=== PATIENT | female | born 1985 | race Caucasian/White ===

== ENCOUNTER 2020-04-26 05:54 | Day surgery (SDC) | payer OTHER ==
[2020-04-23 10:01] LABS: HEMATOCRIT 40.6 % (36.0-47.0); MEAN CORPUSCULAR HEMOGLOBIN 29.8 pg (27.0-33.4); MEAN CORPUSCULAR HGB CONC 34.5 g/dL (32.0-36.0); MEAN CORPUSCULAR VOLUME 86 fl (80-97); PLATELET COUNT 262 10^3/uL (150-450); RED CELL DISTRIBUTION WIDTH 12.8 % (11.5-14.0); WHITE BLOOD COUNT 6.6 10^3/uL (4.0-10.5)
[2020-04-23 10:03] LABS: APPEARANCE,URINE CLEAR; BILIRUBIN,URINE NEGATIVE (NEGATIVE); COLOR,URINE YELLOW; GLUCOSE, URINE NEGATIVE (NEGATIVE); KETONES,URINE NEGATIVE (NEGATIVE); LEUKOCYTE ESTERASE,URINE NEGATIVE (NEGATIVE); NITRITE,URINE NEGATIVE (NEGATIVE); PROTEIN,URINE NEGATIVE (NEGATIVE); UROBILINOGEN,URINE NEGATIVE mg/dL (<2.0)
[2020-04-23 10:32] LABS: ANION GAP 9 (5-19); BLOOD UREA NITROGEN 18 mg/dL (7-20); CALCIUM 9.5 mg/dL (8.4-10.2); CARBON DIOXIDE 26 mmol/L (22-30); CHLORIDE 103 mmol/L (98-107); GLUCOSE 87 mg/dL (75-110); POTASSIUM 4.2 mmol/L (3.6-5.0)
[~2020-04-26 05:54] MED LIST: CEFAZOLIN 1 GM/D5W RTU 1 GM/50 ML RTUPB IV ONE; CEFAZOLIN 1 GM/D5W RTU 1 GM/50 ML RTUPB IV PRN; CEFAZOLIN 1 GM/D5W RTU 1 GM/50 ML RTUPB IV SCH; LACTATED RINGERS 1000 ML IV PRN; LIDOCAINE 0.5% INJ-PF (5 MG/ML) 50 ML SDV SUBCUT PRN
[2020-04-26] MEDS ORDERED: MIDAZOLAM 2 MG/2 ML INJ ONE (08:04)
[2020-04-26] MEDS ORDERED: PROPOFOL INJ 200 MG/20 ML VIAL IV ONE (08:04)
[2020-04-26] MEDS ORDERED: FENTANYL CITRATE INJ/PF 100 MCG/2 ML AMPUL ONE (08:04)
[2020-04-26] MEDS ORDERED: LIDOCAINE 1% INJ-PF (10 MG/ML) 30 ML SDV ONE (08:29)
[2020-04-26] MEDS ORDERED: FENTANYL CITRATE INJ/PF 100 MCG/2 ML AMPUL IV PRN ×3 (08:42)
[2020-04-26] MEDS ORDERED: MORPHINE SULFATE 10 MG/ML INJ IV PRN (08:42)
[2020-04-26] MEDS ORDERED: MEPERIDINE HCL/PF INJ 25 MG/1 ML DISP.SYRIN IV PRN (08:42)
[2020-04-26] MEDS ORDERED: PROMETHAZINE HCL INJ 25 MG/1 ML VIAL IV PRN ×2 (08:42)
[2020-04-26] MEDS ORDERED: DIPHENHYDRAMINE HCL 50 MG/ML VIAL IV PRN (08:42)
--- NOTE | 2020-04-26 09:07 | Operative Report ---
Operative Report DATE OF SURGERY: 04/26/20 PREOPERATIVE DIAGNOSIS: Desires sterilization POSTOPERATIVE DIAGNOSIS: same OPERATION: Open laparoscopy, Filshie clip sterilization SURGEON: SAVANAH ESCOBEDO ANESTHESIA: GA TISSUE REMOVED OR ALTERED: None COMPLICATIONS: None ESTIMATED BLOOD LOSS: 5 mL INTRAOPERATIVE FINDINGS: Normal upper abdomen normal tubes ovaries uterus cul-de-sac. Appendix was not visualized PROCEDURE: The usual risks, benefits, expectations and complications of bleeding, i nfection, anesthesia and damage to other organs have been explaed and understood. No guarantee of permanent sterilization have been made with a risk of of about 1/150/10 years with this procedure. After surgical time out, exam under anesthesia, hulka tenaculum placed, and bladder catheterization ensued. Normal anatomy was noted. The surgeon re-gloved and via an infraumbilical incision thru the subq fat and fascia, the peritoneum was encountered and entered uneventfully. Orgin cannula placed and inflated. The pelvis and upper abdomen was examined, a second 5 mm port placed 3 finger breadths above symphysis under direct visualization, the tubes identified in their entirety and filshie clips placed on the antimesenteric side 1 cm from the uterine fundus bilaterally. The gas and instruments were removed, Fasci closed with O vicryl, subq with 3O gut
[2020-04-26] MEDS ORDERED: KETOROLAC TROMETHAMINE INJ/PF 30 MG/1 ML SDV ONE (09:41)
[2020-04-26] MEDS ORDERED: KETOROLAC TROMETHAMINE INJ/PF 30 MG/1 ML SDV IV ONE (10:00)
[2020-04-26] MEDS ORDERED: ACETAMINOPHEN 325 MG TABLET ONE (10:06)
[2020-04-26] MEDS ORDERED: OXYCODONE-ACETAMINOPHEN 5-325 MG TABLET ONE (10:29)
[2020-04-26 11:34] VITALS: BP 126/85
[2020-04-26] MEDS ORDERED: LIDOCAINE 2% INJ-PF (20 MG/ML) 2 ML AMPUL ONE (13:35)
[2020-04-26] MEDS ORDERED: SUCCINYLCHOLINE CHLORIDE INJ 200 MG/10 ML VIAL ONE (13:35)
[2020-04-26] MEDS ORDERED: ONDANSETRON HCL INJ/PF 4 MG/2 ML SDV ONE (13:35)
== END 2020-04-26 11:20 | disposition home or self-care (01) ==
LOC: OROUT 05:54
PROVIDERS: ATTEND Specialist
DX: Z30.2 Encounter for sterilization (principal); Z03.818 Encounter for observation for suspected exposure to other biological agents ruled out; J45.909 Unspecified asthma, uncomplicated; I47.1 Supraventricular tachycardia
CPT/HCPCS: 86900; 86901; 36415; 86850; 85027; 87635; 81025; 80048; 81001; 58671; J2250; J0690; J3010; J3490 ×2; J1885; J0330; J2405; J2704; C9803; 851